=== PATIENT | male | born 1980 | race Caucasian/White ===

== ENCOUNTER → 2016-06-12 | Outpatient (CLI) | payer OTHER ==
[~2016-06-12] VITALS: Ht 165.1 cm; Wt 70.5 kg
[~2016-06-12] MED LIST: LIDOCAINE 2% INJ 100 MG/5 ML SDV (FOR ANES.) As Ordered ONE; LISI10TA4 PO; NS 1,000 ML IV SCH; OMEP20CA3 PO; PROPOFOL 200 MG/20 ML VIAL As Ordered ONE; SUCR1TA PO
--- NOTE | 2016-06-12 11:32 | ROOR ---
Patient Name: Alejandro Marie Procedure Date: 06/12/2016 11:21 AM Date of : 1980 Age: 35 Room: [facility] Gender: Male Note Status: Finalized Procedure: Upper GI endoscopy Indications: Heartburn, Coffee-ground emesis, (resolved) Providers: Galen ALVA MD Referring MD: KRISTEN BRIGHT MD Requesting Provider: Medicines: Monitored Anesthesia Care Complications: No immediate complications. Procedure: Pre-Anesthesia Assessment: - The heart rate, respiratory rate, oxygen saturations, blood pressure, adequacy of pulmonary ventilation, and response to care were monitored throughout the procedure. The Endoscope was introduced through the mouth, and advanced to the second part of duodenum. The upper GI endoscopy was accomplished without difficulty. The patient tolerated the procedure well. Findings: Mild inflammation was found in the entire examined stomach. Biopsies were taken with a cold forceps for histology. The exam was otherwise without abnormality. Impression: - Mild gastritis. Biopsied. - The examination was otherwise normal. Recommendation: - Await pathology results. - Telephone endoscopist for pathology results in 2 weeks. - Continue present medications. Galen Alva MD Galen ALVA MD 06/12/2016 11:32:00 AM This report has been signed electronically. Number of Addenda: 0 Note Initiated On: 06/12/2016 11:21 AM Estimated Blood Loss: Estimated blood loss: none.
--- NOTE | 2016-06-12 11:42 | ROOR ---
Patient Name: Alejandro Marie Procedure Date: 06/12/2016 11:22 AM Date of : 1980 Age: 35 Room: [facility] Gender: Male Note Status: Finalized Procedure: Colonoscopy Indications: Clinically significant diarrhea of unexplained origin, Abnormal CT of the GI tract Providers: Galen ALVA MD Referring MD: KRISTEN BRIGHT MD Requesting Provider: Medicines: Monitored Anesthesia Care Complications: No immediate complications. Procedure: Pre-Anesthesia Assessment: - The heart rate, respiratory rate, oxygen saturations, blood pressure, adequacy of pulmonary ventilation, and response to care were monitored throughout the procedure. The Colonoscope was introduced through the anus and advanced to 15 cm into the ileum. The colonoscopy was performed without difficulty. The patient tolerated the procedure well. The quality of the bowel preparation was good. Findings: The perianal and digital rectal examinations were normal. The terminal ileum appeared normal. The colon (entire examined portion) appeared normal. Internal hemorrhoids were found during retroflexion. The hemorrhoids were small. Impression: - The perianal and examined portion of the ileum is normal. - The entire colon is normal. - Internal hemorrhoids. - No specimens collected. - (Irritable Bowel Syndrome/IBS suspected.) Recommendation: - Use fiber, for example Citrucel, Fibercon, Konsyl or Metamucil. - Use Bentyl (dicyclomine) 10 mg PO Q 4-6 hrs PRN 30 min AC. - (the script was sent to your pharmacy on file) Galen Alva MD Galen ALVA MD 06/12/2016 11:41:36 AM This report has been signed electronically. Number of Addenda: 0 Note Initiated On: 06/12/2016 11:22 AM Estimated Blood Loss: Estimated blood loss: none.
[2016-06-12 12:05] VITALS: BP 137/97
== END | disposition home or self-care (01) ==
LOC: M OPP 10:19
PROVIDERS: ATTEND Internal Medicine Gastroenterology
DX: R19.7 Diarrhea, unspecified (principal); K64.8 Other hemorrhoids; R12 Heartburn; K29.70 Gastritis, unspecified, without bleeding; K92.0 Hematemesis; I10 Essential (primary) hypertension; F17.200 Nicotine dependence, unspecified, uncomplicated; F17.228 Nicotine dependence, chewing tobacco, with other nicotine-induced disorders; Z79.899 Other long term (current) drug therapy

== ENCOUNTER → 2021-11-22 | Outpatient (REF) | payer OTHER ==
[~2021-11-22] MED LIST changes: -LIDOCAINE 2% INJ 100 MG/5 ML SDV (FOR ANES.) As Ordered ONE; +LISI10TA22 PO; -LISI10TA4 PO; -NS 1,000 ML IV SCH; +OMEP1CAP73 PO; -OMEP20CA3 PO; -PROPOFOL 200 MG/20 ML VIAL As Ordered ONE
[2021-11-22 21:14] LABS: MALB URINE SIEMENS 56.2 MG/L; MAU/CREAT RATIO 43.9 MCG/MG (0.0-30.0)
== END ==
LOC: M LAB REF 17:04
PROVIDERS: ATTEND Nurse Practitioner Family
DX: E13.65 Other specified diabetes mellitus with hyperglycemia (principal)